=== PATIENT | female | born 1965 | race Caucasian/White ===

== ENCOUNTER 2018-05-18 19:24 | Emergency (ER) | payer BC ==
[2018-05-18] MEDS ORDERED: KETOROLAC 30 MG/ML INJ ONE (20:14)
--- NOTE | 2018-05-18 20:59 | RAD REPORT ---
EXAM DESCRIPTION: RAD -Hand Left 3 View - 05/18/2018 8:43 pm CLINICAL HISTORY: Left hand pain status post injury FINDINGS: Moderately displaced fracture involves the base of the fifth proximal phalanx. Angulation is seen at the fracture site. No dislocation
[2018-05-18] MEDS ORDERED: MORPHINE 4 MG/ML SYR ONE (21:12)
[2018-05-18] MEDS ORDERED: ONDANSETRON 4 MG (ODT) TAB ONE (21:13)
[2018-05-18] MEDS ORDERED: LIDOCAINE 1% MPF 30 ML VIAL ONE (21:36)
[2018-05-18] MEDS ORDERED: LIDOCAINE 2% MPF 5 ML VIAL ONE (21:38)
--- NOTE | 2018-05-18 21:51 | EDPHYS ---
Physician Documentation [facility] Name: Maria Ines Levy Age: 52 yrs Sex: Female : 1965 Arrival Date: 05/18/2018 Time: 19:28 Bed 25 Private MD: Guzman Foley ED Physician Mick Aranda HPI: 05/19 05:51 This 52 yrs old Female presents to ER via Ambulatory with complaints of Fall tw4 Injury, Arm Injury. 05:51 Details of fall: The patient fell from an upright position, while standing. Onset: The tw4 symptoms/episode began/occurred today. Associated injuries: The patient sustained palmar aspect of proximal phalanx of left little finger. Severity of symptoms: At their worst the symptoms were moderate, in the emergency department the symptoms are unchanged. The patient has not experienced similar symptoms in the past. Historical: - Allergies: 05/18 19:31 Codeine; tl1 - Home Meds: 19:31 None [Active]; tl1 - PMHx: 19:31 None; tl1 - PSHx: 19:31 None; tl1 - Family history: is not pertinent. - Immunization history: Last tetanus immunization: unknown. - Social history:: Smoking status: unknown. - Ebola Screening: : Patient negative for fever greater than or equal to 101.5 degrees Fahrenheit, and additional compatible Ebola Virus Disease symptoms Patient denies exposure to infectious person Patient denies travel to an Ebola-affected area in the 21 days before illness onset. ROS: 05/19 05:51 Constitutional: Negative for fever, chills, and weight loss, Eyes: Negative for injury, tw4 pain, redness, and discharge, Cardiovascular: Negative for chest pain, palpitations, and edema, Respiratory: Negative for shortness of breath, cough, wheezing, and pleuritic chest pain, Abdomen/GI: Negative for abdominal pain, nausea, vomiting, diarrhea, and constipation, Skin: Negative for injury, rash, and discoloration, Neuro: Negative for headache, weakness, numbness, tingling, and seizure. MS/extremity: Positive for injury or acute deformity, pain, tenderness, Negative for bite, contusion, decreased range of motion. Exam: 05:51 Constitutional: This is a well developed, well nourished patient who is awake, alert, tw4 and in no acute distress. Head/Face: Normocephalic, atraumatic. Cardiovascular: Regular rate and rhythm with a normal S1 and S2. No gallops, murmurs, or rubs. Normal PMI, no JVD. No pulse deficits. Respiratory: Lungs have equal breath sounds bilaterally, clear to auscultation and percussion. No rales, rhonchi or wheezes noted. No increased work of breathing, no retractions or nasal flaring. Abdomen/GI: Soft, non-tender, with normal bowel sounds. No distension or tympany. No guarding or rebound. No evidence of tenderness throughout. Skin: Warm, dry with normal turgor. Normal color with no rashes, no lesions, and no evidence of cellulitis. Neuro: Awake and alert, GCS 15, oriented to person, place, time, and situation. Cranial nerves II-XII grossly intact. Motor strength 5/5 in all extremities. Sensory grossly intact. Cerebellar exam normal. Normal gait. 05:51 Musculoskeletal/extremity: Extremities: noted in the dorsal aspect of proximal phalanx of left little finger: pain. Vital Signs: 05/18 19:32 BP 142 / 100; Pulse 92; Resp 19; Temp 97.6; Pulse Ox 97% ; Weight 72.57 kg; Height 5 tl1 ft. 3 in. (160.02 cm); Pain 10/10; 21:14 BP 126 / 84; Pulse 88; Resp 16; Pulse Ox 98% on R/A; rv 22:00 BP 138 / 93; Pulse 76; Resp 17; Pulse Ox 97% on R/A; rv 19:32 Body Mass Index 28.34 (72.57 kg, 160.02 cm) tl1 [place] Coma Score: 19:32 Eye Response: spontaneous(4). Verbal Response: oriented(5). Motor Response: obeys tl1 commands(6). Total: 15. Trauma Score (Adult): 19:32 Eye Response: spontaneous(1); Verbal Response: oriented(1); Motor Response: obeys tl1 commands(2); Systolic BP: > 89 mm Hg(4); Respiratory Rate: 10 to 29 per min(4); [place] Score: 15; Trauma Score: 12 MDM: 19:39 Patient medically screened. tw4 05/19 05:51 Differential diagnosis: fracture. Data reviewed: vital signs, nurses notes. Data tw4 interpreted: Pulse oximetry: Interpretation: normal. Test interpretation: by ED physician or midlevel provider: plain radiologic studies. Counseling: I had a detailed discussion with the patient and/or guardian regarding: the historical points, exam findings, and any diagnostic results supporting the discharge/admit diagnosis, radiology results. Medication response: morphine markedly relieved the patient's pain. Symptoms have improved. Response to treatment: the patient's symptoms have markedly improved after treatment, the patient's symptoms have resolved after treatment, the patient's pain is gone, and as a result, I will discharge patient, administer pain medication, tramadol. 05/18 19:59 Order name: Hand Left 3 View XRAY; Complete Time: 21:00 tw4 Administered Medications: 05/18 20:02 Drug: TORadol 60 mg Route: IM; Site: right deltoid; rv 20:27 Follow up: Response: Pain is unchanged, physician notified rv 21:05 Drug: morphine 4 mg Route: IM; Site: left deltoid; rv 21:59 Follow up: Response: Pain is decreased rv 21:05 Drug: Zofran 4 mg Route: PO; rv 21:59 Follow up: Response: No adverse reaction rv Disposition: 05/18/18 21:51 Discharged to Home. Impression: Displaced fracture of distal phalanx of left little finger. - Condition is Stable. - Discharge Instructions: Finger Fracture, [id number]. - Prescriptions for Tramadol 50 mg Oral Tablet - take 1 tablet by ORAL route every 8 hours as needed; 12 tablet. - Medication Reconciliation Form, Thank You Letter, Antibiotic Education, Prescription Opioid Use form. - Follow up: Guzman Foley MD; When: Upon discharge from the Emergency Department; Reason: If symptoms return, Recheck today's complaints, Continuance of care. Follow up: Norberto Aldnaa MD; When: Upon discharge from the Emergency Department; Reason: If symptoms return, Recheck today's complaints, Continuance of care. - Problem is new. - Symptoms have improved. Signatures: Dispatcher [employer] EDMS Grace Pettit RN RN tl1 Mick Aranda MD MD tw4 Spencer Barger RN RN rv Corrections: (The following items were deleted from the chart) 20:35 19:59 Wrist Left 3 View+RAD.RAD.BRZ ordered. EDMS EDMS 22:02 21:51 05/18/2018 21:51 Discharged to Home. Impression: Displaced fracture of distal rv phalanx of left little finger. Condition is Stable. Forms are Medication Reconciliation Form, Thank You Letter, Antibiotic Education, Prescription Opioid Use. Follow up: Guzman Foley; When: Upon discharge from the Emergency Department; Reason: If symptoms return, Recheck today's complaints, Continuance of care. Follow up: Norberto Aldana; When: Upon discharge from the Emergency Department; Reason: If symptoms return, Recheck today's complaints, Continuance of care. Problem is new. Symptoms have improved. tw4
--- NOTE | 2018-05-18 21:51 | ER ---
Nurse's Notes [facility] Name: Maria Ines Levy Age: 52 yrs Sex: Female : 1965 Arrival Date: 05/18/2018 Time: 19:28 Bed 25 Private MD: Guzman Foley Diagnosis: Displaced fracture of distal phalanx of left little finger Presentation: 05/18 19:30 Presenting complaint: Patient states: I was walking down the sidewalk and tripped on tl1 the uneven part and landed on left arm. Care prior to arrival: None. Mechanism of Injury: Fall from standing position. Trauma event details: Injury occurred in the [facility], Injury occurred: at home. Injury occurred: May 18, 2018 Injury occurred at: 19:00. 19:30 Acuity: AC 3 tl1 19:30 Method Of Arrival: Ambulatory tl1 19:55 Transition of care: patient was not received from another setting of care. Onset of rv symptoms was May 18, 2018 at 19:55. Risk Assessment: Do you want to hurt yourself or someone else? Patient reports no desire to harm self or others. Initial Sepsis Screen: Does the patient meet any 2 criteria? No. Patient's initial sepsis screen is negative. Does the patient have a suspected source of infection? No. Patient's initial sepsis screen is negative. Trauma Activation: Not Applicable Physician: ED Physician; Name: ; Notified At: ; Arrived At: Physician: General Surgeon; Name: ; Notified At: ; Arrived At: Physician: Radiology; Name: ; Notified At: ; Arrived At: Physician: Respiratory; Name: ; Notified At: ; Arrived At: Physician: Lab; Name: ; Notified At: ; Arrived At: Historical: - Allergies: 19:31 Codeine; tl1 - Home Meds: 19:31 None [Active]; tl1 - PMHx: 19:31 None; tl1 - PSHx: 19:31 None; tl1 - Family history: is not pertinent. - Immunization history: Last tetanus immunization: unknown. - Social history:: Smoking status: unknown. - Ebola Screening: : Patient negative for fever greater than or equal to 101.5 degrees Fahrenheit, and additional compatible Ebola Virus Disease symptoms Patient denies exposure to infectious person Patient denies travel to an Ebola-affected area in the 21 days before illness onset. Screenin:55 Abuse screen: Denies threats or abuse. Denies injuries from another. Nutritional rv screening: No deficits noted. Tuberculosis screening: No symptoms or risk factors identified. Fall Risk None identified. Primary Survey: 19:55 NO uncontrolled hemorrhage observed. Breathing/Chest: Respiratory pattern: regular. rv Circulation: Cardiac rhythm: sinus rhythm. Disability Alert. 21:14 Reassessment Breathing/Chest Respiratory pattern Regular. Reassessment Airway Airway rv Patent Circulation Heart rhythm Sinus rhythm. Assessment: 19:54 General: Appears in no apparent distress. uncomfortable, Behavior is calm, cooperative. rv Pain: Complains of pain in left arm. Neuro: Level of Consciousness is awake, alert, obeys commands, Oriented to person, place, time, situation. Cardiovascular: Capillary refill < 3 seconds. Respiratory: Airway is patent. GI: No signs and/or symptoms were reported involving the gastrointestinal system. : No signs and/or symptoms were reported regarding the genitourinary system. EENT: No signs and/or symptoms were reported regarding the EENT system. Derm: Skin is intact. Musculoskeletal: No signs and/or symptoms reported regarding the musculoskeletal system. Vital Signs: 19:32 BP 142 / 100; Pulse 92; Resp 19; Temp 97.6; Pulse Ox 97% ; Weight 72.57 kg; Height 5 tl1 ft. 3 in. (160.02 cm); Pain 10/10; 21:14 BP 126 / 84; Pulse 88; Resp 16; Pulse Ox 98% on R/A; rv 22:00 BP 138 / 93; Pulse 76; Resp 17; Pulse Ox 97% on R/A; rv 19:32 Body Mass Index 28.34 (72.57 kg, 160.02 cm) tl1 [place] Coma Score: 19:32 Eye Response: spontaneous(4). Verbal Response: oriented(5). Motor Response: obeys tl1 commands(6). Total: 15. Trauma Score (Adult): 19:32 Eye Response: spontaneous(1); Verbal Response: oriented(1); Motor Response: obeys tl1 commands(2); Systolic BP: > 89 mm Hg(4); Respiratory Rate: 10 to 29 per min(4); [place] Score: 15; Trauma Score: 12 ED Course: 19:28 Patient arrived in ED. es 19:28 Guzman Foley MD is Private Physician. es 19:31 Triage completed. tl1 19:33 Arm band placed on right wrist. tl1 19:39 Mick Aranda MD is Attending Physician. tw4 19:56 Patient maintains SpO2 saturation greater than 95% on room air. rv 20:06 Patient has correct armband on for positive identification. Bed in low position. Call rv light in reach. Side rails up X 1. Adult w/ patient. Pulse ox on. NIBP on. 20:06 Thermoregulation: warm blanket given to patient. rv 20:43 Hand Left 3 View XRAY In Process Unspecified. EDMS 21:47 Guzman Foley MD is Referral Physician. tw4 21:48 Norberto Aldana MD is Referral Physician. tw4 22:00 Patient did not have IV access during this emergency room visit. rv 22:01 Assist provider with fracture care of left hand Fracture is closed. Obvious deformity rv is noted. Circulation, motor and sensation is intact. Set up for procedure. Performed by Mick Aranda MD Reduced with physical manipulation. Immobilized with finger splint. Patient tolerated well. Administered Medications: 20:02 Drug: TORadol 60 mg Route: IM; Site: right deltoid; rv 20:27 Follow up: Response: Pain is unchanged, physician notified rv 21:05 Drug: morphine 4 mg Route: IM; Site: left deltoid; rv 21:59 Follow up: Response: Pain is decreased rv 21:05 Drug: Zofran 4 mg Route: PO; rv 21:59 Follow up: Response: No adverse reaction rv Outcome: 21:51 Discharge ordered by . tw4 22:00 Discharged to home ambulatory. rv 22:00 Condition: good 22:00 Discharge instructions given to patient, family, Instructed on discharge instructions, follow up and referral plans. medication usage, Demonstrated understanding of instructions, follow-up care, medications, splint care, Prescriptions given X 1. 22:02 Patient left the ED. rv Signatures: Dispatcher [employer] Mary Johansen Tonya, RN RN tl1 Mick Aranda MD MD tw4 Spencer Barger RN RN rv Corrections: (The following items were deleted from the chart) 22:02 22:00 No provider procedures requiring assistance completed. rv rv
== END 2018-05-18 22:02 | disposition home or self-care (01) ==
LOC: ER 19:24
DX: S62.637A Displaced fracture of distal phalanx of left little finger, initial encounter for closed fracture (principal); W18.39XA Other fall on same level, initial encounter; Y93.89 Activity, other specified; Y92.9 Unspecified place or not applicable; Z88.5 Allergy status to narcotic agent
CPT/HCPCS: 96372; 99285

== ENCOUNTER 2021-11-24 19:22 | Emergency (ER) | payer BC ==
--- OUTSIDE RECORDS SUMMARY | 2021-11-24 19:25 | XMS REPORT | Continuity of Care Document ---
:1965 Author Organization [facility] [place] [facility] t Address [address] [place] [address] [address] [place] [address] Care Team Providers Name Role Phone Guzman Foley Primary Care Physician Nurse, Adc Pob Immunization Attending Clinician Unavailable Silas Gaines MD Attending Clinician SILAS GAINES Attending Clinician Unavailable Kadeem Marvin MD Attending Clinician Payers Payer Name Policy Type Policy Number Effective Date Expiration Date S ource Problems Condition Condition Condition Status Onset Resolution Last Treating Co mments Source Name Details Category Date Date Treatment Clinician Date Renal Renal Disease Active Overview: [facility] s colic colic 04-01 Formattin ity of 00:00: g of this note Medical might be Branch different from the original. Added automatic ally from request for surgery [id number] Left Left Disease Active Univers nephrolith nephrolith 03-30 it y of iasis iasis 00:00: [place] 00 Medical Branch Flank pain Flank pain Disease Active Overview : Univers 03-30 Formattin ity of 00:00: g of this note Medical might be Branch different from the original. Added automatic ally from request for surgery [id number] Allergies, Adverse Reactions, Alerts Allergy Allergy Status Severity Reaction(s) Onset Inactive Treating Comm ents Source Name Type Date Date Clinician Codeine Propensi Active Itching Univer s ty to 03-30 ity of adverse 00:00: [place] reaction 00 Medical s Branch CODEINE DRUG Active ITCHING Univers INGREDI 03-30 ity of 00:00: [place] 00 Medical Branch Social History Social Habit Start Date Stop Date Quantity Comments Source History [facility] University o f Alcohol Comment [place] [facility] Exposure to Not sure University of SARS-CoV-2 [place] [facility] (event) Branch History of Cigarette Smoker Universi ty of tobacco use [place] [facility] History [facility] University o f Alcohol Std [place] [facility] Drinks Branch History [facility] University o f Alcohol Binge [place] [facility] al [facility] Alcohol intake 2021-03-10 2021-03-10 Lifetime University of 00:00:00 00:00:00 non-drinker [place] [facility] (finding) Branch Tobacco use and 2020-03-28 2020-03-28 Never used Universit y of exposure 00:00:00 00:00:00 [place] [facility] History SDOH 2020-03-28 2020-03-28 1 University o f Alcohol Frequency 00:00:00 00:00:00 [facility] edical [place] Sex Ass[birth year] At [birth year] Universit y of 00:00:00 00:00:00 [facility] Smoking Status Start Date Stop Date Source Former smoker 2020-03-28 00:00:00 2020-03-28 00:00:00 Universi ty of [place] [facility] Medications Ordered Filled Start Stop Current Ordering Indication Dosage Frequency Signature Comments Components Source Medication Medication Date Date Medication? Clinician (SIG) Name Name chlorhexidi Yes [id number] 15mL Swish and Univers ne 0.12 % 4-30 spit out ity of mouthwash 00:00: 15 mL 2 (two) Medical times Branch daily. traMADoL 50 Yes [id number] 50mg Take 1 Univ ers mg tablet 4-30 tablet by ity o f 00:00: mouth [place] 00 every 6 Medical (six) Branch hours as needed for Pain (scale 7-10). Indication s: acute pain ibuprofen Yes [id number] 600mg Take 1 U nivers 600 mg 4-30 tablet by ity of tablet 00:00: mouth [place] 00 every 8 Medical (eight) Branch hours as needed for Pain (scale 4-6). chlorhexidi Yes [id number] 15mL Swish and Univers ne 0.12 % 4-30 spit out ity of mouthwash 00:00: 15 mL 2 00 (two) Medical times Branch daily. traMADoL 50 2020-0 Yes [id number] 50mg Take 1 Univ ers mg tablet 4-30 tablet by ity o f 00:00: mouth [place] 00 every 6 Medical (six) Branch hours as needed for Pain (scale 7-10). Indication s: acute pain ibuprofen 0 Yes [id number] 600mg Take 1 U nivers 600 mg 4-30 tablet by ity of tablet 00:00: mouth [place] 00 every 8 Medical (eight) Branch hours as needed for Pain (scale 4-6). ibuprofen 0 Yes [id number] 600mg Take 1 U nivers 600 mg 1-15 tablet by ity of tablet 00:00: mouth [place] 00 every 6 Medical (six) Branch hours as needed for Pain (scale 4-6) (alternate with tylenol every 3 hours for pain). acetaminoph Yes [id number] 650mg Take 1 Univers en (TYLENOL 1-15 tablet by ity of 8 HOUR) 650 00:00: mouth [place] mg CR 00 every 8 Medical tablet (eight) Branch hours as needed for Pain (alternate with ibuporfen every 3 hours for pain). ibuprofen Yes [id number] 600mg Take 1 U nivers 600 mg 1-15 tablet by ity of tablet 00:00: mouth [place] 00 every 6 Medical (six) Branch hours as needed for Pain (scale 4-6) (alternate with tylenol every 3 hours for pain). acetaminoph 0 Yes [id number] 650mg Take 1 Univers en (TYLENOL 1-15 tablet by ity of 8 HOUR) 650 00:00: mouth [place] mg CR 00 every 8 Medical tablet (eight) Branch hours as needed for Pain (alternate with ibuporfen every 3 hours for pain). gabapentin 0 Yes [id number] 300mg Take 1 U nivers 300 mg 1-10 capsule by ity of capsule 00:00: mouth 3 (three) Medical times Branch daily. gabapentin 2020-0 Yes [id number] 300mg Take 1 U nivers 300 mg 1-10 capsule by ity of capsule 00:00: mouth 3 00 (three) Medical times Branch daily. glimepiride 2019-03 Yes Univer s 1 mg tablet 2-28 ity of 00:00: Medical Branch omeprazole 2019-03 Yes Univers 40 mg 2-28 ity of capsule 00:00: [place] [facility] glimepiride 2019-03 Yes Univer s 1 mg tablet 2-28 ity of 00:00: [place] [facility] omeprazole 2019-03 Yes Univers 40 mg 2-28 ity of capsule 00:00: [place] [facility] traMADol 2018-03 Yes [id number] 50mg Take 1 Un chirag (ULTRAM) 50 1-21 tablet by ity of mg tablet 00:00: mouth 00 every 6 Medical (six) Branch hours as needed for Pain (scale 7-10). metFORMIN 2018-03 Yes [id number] 500mg Take 1 Univers 500 mg 1-21 tablet by ity of tablet 00:00: mouth 2 [place] (two) Medical times Branch daily. traMADol 2018-03 Yes [id number] 50mg Take 1 Un chirag (ULTRAM) 50 1-21 tablet by ity of mg tablet 00:00: mouth [place] 00 every 6 Medical (six) Branch hours as needed for Pain (scale 7-10). metFORMIN 2018-03 Yes [id number] 500mg Take 1 Univers 500 mg 1-21 tablet by ity of tablet 00:00: mouth 2 [place] (two) Medical times Branch daily. Immunizations Ordered Filled Immunization Date Status Comments [facility] e Immunization Name Name SARS-COV-2 COVID-19 2021-03-12 Completed Unive rsity of PFIZER VACCINE 00:00:00 [facility] [place] [facility] SARS-COV-2 COVID-19 2020-07-01 Completed Unive rsity of PFIZER VACCINE 00:00:00 [facility] [place] [facility] SARS-COV-2 COVID-19 2020-07-01 Completed Unive rsity of PFIZER VACCINE 00:00:00 [facility] [place] [facility] SARS-COV-2 COVID-19 2020-06-11 Completed Unive rsity of PFIZER VACCINE 00:00:00 [facility] [place] [facility] SARS-COV-2 COVID-19 2020-06-11 Completed Unive rsity of PFIZER VACCINE 00:00:00 [facility] [place] [facility] Vital Signs Vital Name Observation Time Observation Value Comments Source Systolic blood 2021-03-10 16:23:00 122 mm[Hg] Univer sity of pressure [facility] Diastolic blood 2021-03-10 16:23:00 82 mm[Hg] Unive rsity of pressure [facility] Heart rate 2021-03-10 16:23:00 71 /min [facility] Body temperature 2021-03-10 16:23:00 36.11 [facility] Res[facility] rate 2021-03-10 16:23:00 18 /min [facility] Body height 2021-03-10 16:23:00 160 cm [facility] Body weight 2021-03-10 16:23:00 73.029 kg [facility] BMI 2021-03-10 16:23:00 28.52 kg/m2 [facility] Oxygen saturation in 2021-03-10 16:23:00 100 /min [facility] Arterial blood by [facility] Pulse oximetry [place] Procedures Procedure Date / Time Performed Performing Clinician Sour e SARS-COV-2 COVID-19 2021-03-12 19:50:39 [facility]igned, [facility],IM Name [facility] (PFIZER) POCT URINALYSIS AUTO 2021-03-10 17:12:00 Kadeem Marvin [facility] Encounters Start End Encounter Admission Attending Care Care Encounter Source Date/Time Date/Time Type Type Clinicians Facility Department ID 2021-03-12 2021-03-12 Imm/Inj Nurse, Adc Pob Immunization [facility] [id number] [facility] 13:20:00 13:29:14 Visit Silas Gaines [id number] [facility] [id number] Caterina ansari PROFESSIO [id number] Sc dical [place] [id number] Branch BUILDING 2021-03-12 2021-03-12 Outpatient R [facility] [id number] Univers 13:20:00 13:20:00 [id number] [facility] 2021-03-12 2021-03-12 Outpatient R LIANA [facility] [id number] [facility] 13:20:00 13:20:00 SILAS [facility] 2021-03-10 2021-03-10 Office [facility] [id number] Univers 09:45:00 10:58:53 Visit Kadeem WEN [id number] i ty of [place] [id number] Caterina VALDOVINOSLEE [phone] Sc dical NAL 204 [facility] Results Test Description Test Time Test Comments Results Result Comments Source POCT URINALYSIS, INSTRUMENT 2021-03-10 17:13:00 Test Item Value Reference Range Interpretation Comme nts POCT U SP GRAV (test code = 3255) 1.030 mg/dl 1.005-1.025 A POCT PH U (test code = 3254) 6.0 mg/dl 5-8 POCT U LEUK EST (test code = 3263) Negtative Negative - Negative POCT U NIT (test code = 3262) Negative Negative - Negative POCT U PROT (test code = 3259) Trace Negative - Negative POCT U GLU (test code = 3256) Negative - Negative POCT U KETONE (test code = 3258) Negative Negative - Negative POCT U UROBILI (test code = 3260) 0.2 mg/dl 0.2-1 POCT U BILI (test code = 3261) Negative Negative - Negative POCT U BLD (test code = 3257) Trace Negative - Negative POCT U COLOR (test code = 3266) yellow POCT U APPEAR (test code = 3267) clear Lab Interpretation (test code = 44118-0) Abnormal [facility]
--- NOTE | 2021-11-24 20:28 | EDPHYS ---
Physician Documentation [facility] Name: Maria Ines Levy Age: 56 yrs Sex: Female : 1965 Arrival Date: 11/24/2021 Time: 19:23 Bed 18 Private MD: ED Physician Ron Thorne HPI: 11/24 20:20 This 56 yrs old Female presents to ER via Wheelchair with complaints of Snake yajaira bite. 20:20 The patient was bitten on the right first toe and right second toe, by a bee. Onset: yajaira The symptoms/episode began/occurred just prior to arrival. Animal information: Patient/Caregiver unable to provide information related to the animal. Secondary to the bite the patient reports pain, swelling. Associated signs and symptoms: The patient has no apparent associated signs or symptoms. Severity of symptoms: At their worst the symptoms were mild, in the emergency department the symptoms are unchanged. It is unknown whether or not the patient has had similar symptoms in the past. Historical: - Allergies: 19:31 Codeine; tw5 - PMHx: 19:31 Diabetes mellitus; tw5 - Immunization history:: Flu vaccine is not up to date. - Social history:: Smoking status: Patient denies any tobacco usage or history of. ROS: 20:21 Constitutional: Negative for fever, chills, and weight loss, Eyes: Negative for injury, yajaira pain, redness, and discharge, ENT: Negative for injury, pain, and discharge, Neck: Negative for injury, pain, and swelling, Cardiovascular: Negative for chest pain, palpitations, and edema, Respiratory: Negative for shortness of breath, cough, wheezing, and pleuritic chest pain, Abdomen/GI: Negative for abdominal pain, nausea, vomiting, diarrhea, and constipation, Back: Negative for injury and pain, : Negative for injury, bleeding, discharge, and swelling, Skin: Negative for injury, rash, and discoloration, Neuro: Negative for headache, weakness, numbness, tingling, and seizure, Psych: Negative for depression, anxiety, suicide ideation, homicidal ideation, and hallucinations, Allergy/Immunology: Negative for hives, rash, and allergies, Hematologic/Lymphatic: Negative for swollen nodes, abnormal bleeding, and unusual bruising. 20:21 MS/extremity: Positive for pain, swelling, tenderness, of the right first toe and right second toe. Exam: 20:21 Constitutional: This is a well developed, well nourished patient who is awake, alert, yajaira and in no acute distress. Head/Face: Normocephalic, atraumatic. Eyes: Pupils equal round and reactive to light, extra-ocular motions intact. Lids and lashes normal. Conjunctiva and sclera are non-icteric and not injected. Cornea within normal limits. Periorbital areas with no swelling, redness, or edema. ENT: Nares patent. No nasal discharge, no septal abnormalities noted. Tympanic membranes are normal and external auditory canals are clear. Oropharynx with no redness, swelling, or masses, exudates, or evidence of obstruction, uvula midline. Mucous membranes moist. Neck: Trachea midline, no thyromegaly or masses palpated, and no cervical lymphadenopathy. Supple, full range of motion without nuchal rigidity, or vertebral point tenderness. No Meningismus. Chest/axilla: Normal chest wall appearance and motion. Nontender with no deformity. No lesions are appreciated. Cardiovascular: Regular rate and rhythm with a normal S1 and S2. No gallops, murmurs, or rubs. Normal PMI, no JVD. No pulse deficits. Respiratory: Lungs have equal breath sounds bilaterally, clear to auscultation and percussion. No rales, rhonchi or wheezes noted. No increased work of breathing, no retractions or nasal flaring. Abdomen/GI: Soft, non-tender, with normal bowel sounds. No distension or tympany. No guarding or rebound. No evidence of tenderness throughout. Back: No spinal tenderness. No costovertebral tenderness. Full range of motion. Female : Normal external genitalia. Skin: Warm, dry with normal turgor. Normal color with no rashes, no lesions, and no evidence of cellulitis. Neuro: Awake and alert, GCS 15, oriented to person, place, time, and situation. Cranial nerves II-XII grossly intact. Motor strength 5/5 in all extremities. Sensory grossly intact. Cerebellar exam normal. Normal gait. Psych: Awake, alert, with orientation to person, place and time. Behavior, mood, and affect are within normal limits. 20:21 Musculoskeletal/extremity: ROM: full active range of motion, full passive range of motion, limited active range of motion due to pain, limited passive range of motion due to pain, Circulation is intact in all extremities. Sensation intact. Compartment Syndrome exam of affected extremity: is normal. Vital Signs: 19:30 BP 138 / 96; Pulse 88; Resp 18; Temp 98.3; Pulse Ox 100% on R/A; Weight 68.04 kg; tw5 Height 5 ft. 3 in. (160.02 cm); Pain 10/10; 20:42 BP 134 / 76; Pulse 81; Resp 18 S; Pulse Ox 100% on R/A; lg3 19:30 Body Mass Index 26.57 (68.04 kg, 160.02 cm) tw5 MDM: 20:06 Patient medically screened. yajaira 20:22 Differential diagnosis: cellulitis, cellulitis. Rabies Status: Rabies immunization is [facility] not indicated. Data reviewed: vital signs, nurses notes. Data interpreted: quality assurance monitor body: rate is 88 beats/min, rhythm is atrial fibrillation, Pulse oximetry: on room air is 100 %. Counseling: I had a detailed discussion with the patient and/or guardian regarding: the historical points, exam findings, and any diagnostic results supporting the discharge/admit diagnosis, the need for outpatient follow up, for definitive care, a family practitioner. 11/24 20:18 Order name: Post-op shoe; Complete Time: 20:38 yajaira 11/24 20:18 Order name: Ice pack; Complete Time: 20:38 yajaira Administered Medications: 20:37 Drug: Ketorolac 60 mg Route: IM; Site: right gluteus; lg3 21:06 Follow up: Response: No adverse reaction; Pain is decreased lg3 20:38 Drug: Benadryl (diphenhydrAMINE) 50 mg Route: PO; lg3 21:06 Follow up: Response: No adverse reaction; Marked relief of symptoms lg3 20:38 Drug: Pepcid (famotidine) 40 mg Route: PO; lg3 21:06 Follow up: Response: No adverse reaction lg3 20:38 Drug: KeFLEX (cephalexin) 500 mg Route: PO; lg3 20:38 Follow up: Response: No adverse reaction lg3 21:06 Follow up: Response: No adverse reaction lg3 Disposition Summary: 11/24/21 20:27 Discharge Ordered Location: Home yajaira Problem: new yajaira Symptoms: have improved yajaira Condition: Stable yajaira Diagnosis - Insect bite (nonvenomous), right lower leg yajaira Followup: yajaira - With: Private Physician - When: 2 - 3 days - Reason: Recheck today's complaints, Continuance of care, Re-evaluation by your physician Discharge Instructions: - Discharge Summary Sheet yajaira - Insect Bite, Adult, [id number] yajaira - Insect Bite, Adult yajaira - RICE Therapy for Routine Care of Injuries [facility] Forms: - Medication Reconciliation Form [facility] - Thank You Letter yajaira - Antibiotic Education [facility] - Prescription Opioid Use [facility] Prescriptions: - Benadryl 25 mg Oral Capsule - take 2 capsule by ORAL route every 6 hours As needed; 40 tablet; Refills: 0, [facility] Product Selection Permitted - Cephalexin 500 mg Oral Capsule - take 1 capsule by ORAL route every 6 hours for 7 days; 58 capsule; Refills: 0, [facility] Product Selection Permitted - Tramadol 50 mg Oral Tablet - take 1 tablet by ORAL route every 8 hours as needed; 15 tablet; Refills: 0, [facility] Product Selection Permitted - Pepcid 20 mg Oral Tablet - take 2 tablet by ORAL route once daily for 10 days; 20 tablet; Refills: 0, [facility] Product Selection Permitted Signatures: Ron Thorne MD MD cha Gibson, Lacie, TINY RN lg3 [place] tw5
--- NOTE | 2021-11-24 20:28 | ER ---
Nurse's Notes [facility] Name: Maria Ines Levy Age: 56 yrs Sex: Female : 1965 Arrival Date: 11/24/2021 Time: 19:23 Bed 18 Private MD: Diagnosis: Insect bite (nonvenomous), right lower leg Presentation: 11/24 19:30 Chief complaint: Patient states: "I just thought it was a bee at first. It was in tw5 between my toes. However, the pain is getting unbearable and the swelling is getting worse.". Coronavirus screen: Vaccine status: Patient reports receiving the 2nd dose of the covid vaccine. Unknown. Ebola Screen: Patient negative for fever greater than or equal to 101.5 degrees Fahrenheit, and additional compatible Ebola Virus Disease symptoms Patient denies exposure to infectious person. Patient denies travel to an Ebola-affected area in the 21 days before illness onset. Initial Sepsis Screen: Does the patient meet any 2 criteria? No. Patient's initial sepsis screen is negative. Does the patient have a suspected source of infection? No. Patient's initial sepsis screen is negative. Risk Assessment: Do you want to hurt yourself or someone else? Patient reports no desire to harm self or others. Onset of symptoms was November 24, 2021 at 17:30. 19:30 Method Of Arrival: Wheelchair tw5 19:30 Acuity: AC 3 tw5 Triage Assessment: 19:31 Bite description: bite sustained to right first toe by an unknown animal, animal tw5 information: vaccination(s) is not applicable. General: Appears uncomfortable, Behavior is calm, cooperative, appropriate for age. Pain: Pain currently is 10 out of 10 on a pain scale. Historical: - Allergies: 19:31 Codeine; tw5 - PMHx: 19:31 Diabetes mellitus; tw5 - Immunization history:: Flu vaccine is not up to date. - Social history:: Smoking status: Patient denies any tobacco usage or history of. Screenin:39 Abuse screen: Denies threats or abuse. Denies injuries from another. Nutritional lg3 screening: No deficits noted. Tuberculosis screening: No symptoms or risk factors identified. Fall Risk None identified. Assessment: 20:39 General: Appears in no apparent distress. uncomfortable, Behavior is calm, cooperative. lg3 Pain: Complains of pain in right foot Pain currently is 7 out of 10 on a pain scale. Quality of pain is described as burning, sharp, squeezing, stinging. Neuro: No deficits noted. Level of Consciousness is awake, alert, obeys commands, Oriented to person, place, time, situation. Cardiovascular: No deficits noted. Denies chest pain, shortness of breath, Capillary refill < 3 seconds Clubbing of nail beds is absent JVD is absent Patient's skin is warm and dry. Respiratory: No deficits noted. Airway is patent Trachea midline Respiratory effort is even, unlabored, Respiratory pattern is regular, symmetrical, Breath sounds are clear bilaterally. GI: No deficits noted. No signs and/or symptoms were reported involving the gastrointestinal system. Abdomen is flat, non-distended, Abd is soft and non tender X 4 quads. : No deficits noted. No signs and/or symptoms were reported regarding the genitourinary system. EENT: No deficits noted. No signs and/or symptoms were reported regarding the EENT system. Derm: Skin is intact, is healthy with good turgor, Skin is dry, Skin is normal, Skin temperature is warm Reports burning, itching, pain that is 7 out of 10 on a pain scale. Musculoskeletal: Circulation, motion, and sensation intact. Range of motion: intact in all extremities, Swelling present in right foot. Vital Signs: 19:30 BP 138 / 96; Pulse 88; Resp 18; Temp 98.3; Pulse Ox 100% on R/A; Weight 68.04 kg; tw5 Height 5 ft. 3 in. (160.02 cm); Pain 10/10; 20:42 BP 134 / 76; Pulse 81; Resp 18 S; Pulse Ox 100% on R/A; lg3 19:30 Body Mass Index 26.57 (68.04 kg, 160.02 cm) tw5 ED Course: 19:23 Patient arrived in ED. ja2 19:31 Triage completed. tw5 19:31 Arm band placed on left wrist. tw5 20:06 Ron Thorne MD is Attending Physician. [facility] 20:39 Patient has correct armband on for positive identification. Bed in low position. Call lg3 light in reach. Side rails up X 1. Client placed on continuous cardiac and pulse oximetry monitoring. NIBP monitoring applied. Door closed. Noise minimized. Warm blanket given. Family accompanied patient. 20:39 No provider procedures requiring assistance completed. Patient did not have IV access lg3 during this emergency room visit. 21:06 Evy Ashraf, RN is Primary Nurse. lg3 Administered Medications: 20:37 Drug: Ketorolac 60 mg Route: IM; Site: right gluteus; lg3 21:06 Follow up: Response: No adverse reaction; Pain is decreased lg3 20:38 Drug: Benadryl (diphenhydrAMINE) 50 mg Route: PO; lg3 21:06 Follow up: Response: No adverse reaction; Marked relief of symptoms lg3 20:38 Drug: Pepcid (famotidine) 40 mg Route: PO; lg3 21:06 Follow up: Response: No adverse reaction lg3 20:38 Drug: KeFLEX (cephalexin) 500 mg Route: PO; lg3 20:38 Follow up: Response: No adverse reaction lg3 21:06 Follow up: Response: No adverse reaction lg3 Medication: 20:39 VIS not applicable for this client. lg3 Outcome: 20:27 Discharge ordered by MD. gates 21:06 Discharged to home via wheelchair, with family, with significant other. lg3 21:06 Condition: stable 21:06 Discharge instructions given to patient, Instructed on discharge instructions, follow up and referral plans. medication usage, Demonstrated understanding of instructions, follow-up care, medications, Prescriptions given X 4. 21:07 Patient left the ED. lg3 Signatures: Ron Thorne MD MD cha Gibson, Lacie, RN RN lg3 Shannan Alfaro Tiffany tw5
[2021-11-24] MEDS ORDERED: CEPHALEXIN 250 MG CAP ONE (20:39)
[2021-11-24] MEDS ORDERED: DIPHENHYDRAMINE 25 MG TAB/CAP ONE (20:39)
[2021-11-24] MEDS ORDERED: KETOROLAC 30 MG/ML INJ ONE (20:39)
[2021-11-24] MEDS ORDERED: FAMOTIDINE 20 MG TAB ONE (20:40)
[2021-11-24 22:01] VITALS: TEMP 98.3; O2SAT 100
[2021-11-24 22:03] VITALS: BP 134/76
== END 2021-11-24 21:07 | disposition home or self-care (01) ==
LOC: ER 19:22
DX: S80.861A Insect bite (nonvenomous), right lower leg, initial encounter (principal); E11.9 Type 2 diabetes mellitus without complications; Z88.5 Allergy status to narcotic agent
CPT/HCPCS: 96372; 99283